=== PATIENT | male | born 1985 | race Caucasian/White ===

== ENCOUNTER 2016-08-26 16:20 | Emergency (ER) | payer SELFPAY ==
--- NOTE | 2016-09-03 09:05 | ER ---
ADMIT: 08/26/2016 RM/LOC: ER [facility] MR#: [id number] [address] [id number] RAFY DASILVA [address] [place] [id number] Emergency Room Report SEX: M AGE: 31 : 1985 DATE: 08/26/2016 HISTORY: The patient is a 31-year-old male, presents to the emergency room with abdominal pain, it is located left lower quadrant. No radiation. He says he has not had any nausea or vomiting, no fever, no chills. He has had kidney stones in the past, thinks this could be possible, but he does not feel as bad as it was last time. REVIEW OF SYSTEMS: Otherwise, negative. PAST MEDICAL HISTORY: Kidney stones. He also states that his girlfriend has had a yeast infection. He is concerned that she may have given it to him. He denies any penile discharge nor suprapubic tenderness. PHYSICAL EXAMINATION: Otherwise negative except for the left lower quadrant abdominal pain on deep palpation. There is no radiation to the testicle. CLINICAL IMPRESSION: Mild diverticulitis and abdominal pain, left lower quadrant. CT scan did not show any stones, but he was positive for diverticulitis, mild. He was given a prescription of dicyclomine or Bentyl 20 mg 1 p.o. q.i.d., metronidazole, and Cipro. Bowel rest and clear liquids for 48 hours, then high-fiber diet. Follow up very closely with primary provider, Dr. Lm Call . MADDIE Beckham / Jus Peters MD / vinny JOB #: [id number] CC: Jus Peters MD, Attending Physician
== END 2016-08-26 19:16 | disposition home or self-care (01) ==
LOC: ER 16:20
DX: K57.92 Diverticulitis of intestine, part unspecified, without perforation or abscess without bleeding (principal)